=== PATIENT | female | born 1970 | race Caucasian/White ===

== ENCOUNTER → 2023-12-04 16:25 | Outpatient (REF) | payer BC, SELFPAY | LOC: WDC 16:25 | PROVIDERS: ATTENDING PHYSICIAN Nurse Practitioner | DX: Z12.31 Encounter for screening mammogram for malignant neoplasm of breast (principal) | CPT/HCPCS: 77063; 77067 ==

== ENCOUNTER → 2024-12-04 16:40 | Outpatient (REF) | payer BC, SELFPAY | LOC: WDC 16:40 | PROVIDERS: ATTENDING PHYSICIAN Nurse Practitioner | DX: Z12.31 Encounter for screening mammogram for malignant neoplasm of breast (principal) | CPT/HCPCS: 77063; 77067 ==